=== PATIENT | female | born 1960 | race Caucasian/White ===

== ENCOUNTER → 2017-01-21 | Outpatient (CLI) | payer BC ==
[~2017-01-21] MED LIST: 3N1 COMMODE MC; COU1 PO; CPM MC; HOSPITAL BED MC; HYDR12.58 PO; LISI-313 PO; OXYC-481 PO; OXYC20TA41 PO; WALK1EAC23 MC
--- NOTE | 2017-01-21 14:19 | RADRPT ---
PROCEDURE: Right knee radiographs. CLINICAL INDICATION: Right knee pain. Postop. TECHNIQUE: Three views. Weight bearing. Frontal, lateral, and patellar view. COMPARISON: 07/19/2016. FINDINGS: There is no fracture or dislocation. The soft tissues are normal. There is a total right knee arthroplasty which appears satisfactory. There is no lytic or blastic lesion. There is no joint effusion. IMPRESSION: 1. Satisfactory postoperative appearance of the right knee. RPTAT: QQ .Shaheen Henderson MD, Date Time Electronically viewed and signed by .Shaheen Henderson MD, on 01/21/2017 14:18 .R/
== END | disposition home or self-care (01) ==
LOC: HKI 11:02
PROVIDERS: ATTEND Orthopaedic Surgery
DX: T84.84XA Pain due to internal orthopedic prosthetic devices, implants and grafts, initial encounter (principal); Y83.8 Other surgical procedures as the cause of abnormal reaction of the patient, or of later complication, without mention of misadventure at the time of the procedure; M25.561 Pain in right knee; Z96.651 Presence of right artificial knee joint
CPT/HCPCS: 73562; G0463